=== PATIENT | male | born 1995 | race Caucasian/White ===

== ENCOUNTER 2021-07-02 13:56 | Emergency (ER) | payer SELFPAY ==
[~2021-07-02] VITALS: Wt 105.7 kg
[2021-07-02] MEDS ORDERED: AMOXICILLIN875 MG PO (17:50)
[2021-07-02] MEDS ORDERED: Motrin,Rufen800 MG PO (17:50)
== END 2021-07-02 18:39 | disposition home or self-care (01) ==
LOC: ED 13:56 → EDBD 13:59 → ED 13:59
DX: K08.89 Other specified disorders of teeth and supporting structures (principal)

== ENCOUNTER 2021-07-13 19:35 | Emergency (ER) | payer SELFPAY ==
[~2021-07-13 19:35] MED LIST: AMOXICILLIN875 MG PO; Motrin,Rufen800 MG PO
[2021-07-13 20:21] LABS: BASO % 0.3 % (0.0-1.0); EOS # 0.1 10*3/uL (0.0-0.4); EOS % 1.7 % (1.0-4.0); HEMATOCRIT 48.2 % (42.0-52.0); LYMPH # 1.1 10*3/uL (1.3-4.4); LYMPH % 31.4 % (27.0-41.0); MEAN CELL VOLUME 83.2 fl (80.0-94.0); MEAN CORPUSCULAR HGB 26.9 pg (27.0-31.0); MEAN CORPUSCULAR HGB CONC 32.4 g/dl (33.0-37.0); MEAN PLATELET VOLUME 11.2 fl (9.6-12.3); MONO # 0.2 10*3/uL (0.1-1.0); MONO % 6.6 % (3.0-9.0); NEUT # 2.1 10*3/uL (2.3-7.9); NEUT % 59.7 % (47.0-73.0); PLATELET COUNT AUTOMATED 227 10*3/uL (130-400); RED BLOOD COUNT 5.79 10*6/uL (4.50-5.90); RED CELL DISTRI WIDTH 12.9 % (0-14.5); WHITE BLOOD COUNT 3.5 10*3/uL (4.8-10.8)
[2021-07-13 20:39] LABS: ALBUMIN 3.7 gm/dl (3.1-4.5); ALKALINE PHOSPHATASE 94 U/L (45-117); BUN 8 mg/dl (7-24); CHLORIDE 107 mmol/L (98-107); CREATININE 0.87 mg/dL (0.70-1.30); POTASSIUM 3.4 mmol/L (3.5-5.1); SGOT/AST 50 IU/L (3-35); SGPT/ALT 101 U/L (12-78); SODIUM 140 mmol/L (136-145); TOTAL PROTEIN 7.4 gm/dL (6.4-8.2)
== END 2021-07-13 21:02 | disposition home or self-care (01) ==
LOC: ED 19:35
PROVIDERS: Internal Medicine
DX: U07.1 COVID-19 (principal); E87.6 Hypokalemia; R21 Rash and other nonspecific skin eruption